=== PATIENT | female | born 1935 | race Hispanic/Latino ===

== ENCOUNTER 2019-01-29 09:15 | Emergency (ER) | payer MEDICARE ==
[~2019-01-29] VITALS: Ht 152.4 cm; Wt 66.2 kg
--- OUTSIDE RECORDS SUMMARY | 2019-01-29 09:18 | XMS REPORT | Continuity of Care Document ---
Author Author [facility] Organization [facility] Address Unknown Phone Unavailable Care Team Providers Care Software Engineering Manager Name Role Phone [facility] [employer] Unavailable Unavailable Problems Problem Status Onset Date Classification Date Reported Comments Source CERVICAL VIEWS Active 12/25/2018 [facility] K57.92 STAT Active 08/29/2018 [facility] Encounter for screening mammogram for malignant neoplasm of breast 03/22/2018 10/02/2018 [facility] Z12.31 - ENCNTR SCREEN MAMMOGRAM FOR MA Active 02/08/2018 [facility] M54.5 - LOW BACK PAIN Active 10/27/2017 [facility] Age-related osteoporosis without current pathological fracture 10/02/2018 [facility] Asymptomatic menopausal state 10/02/2018 [facility] Other specified disorders of bone density and structure, unspecified site 10/02/2018 [facility] Medications Medication Details Route Status Patient Instructions Ordering Provider Order Date Source Omnipaque 300 injectable solution 100 mL, Route: IVP, Drug Form: SOLN, kg, ONCALL, GFR > 45 mL/min, Start date: 08/29/18 13:00:00 OPEN WINDER, Duration: 1 doses or timesNotes: (Same as:Omnipaque 300). WASTE: F/P - Black; E - Municipal Trash Bin Active 08/29/2018 [facility] Allergies, Adverse Reactions, Alerts No Known Medication Allergies Immunizations No Data Provided for This Section Results Order Name Results Value Reference Range Date Interpretation Comments Source CHEM PANEL eGFR 86 08/29/2018 Result Comment: The eGFR is calculated using the CKD-EPI formula. In most young, healthy individuals the eGFR will be >90 mL/min/1.73m2. The eGFR declines with age. An eGFR of 60-89 may be normal in some populations, particularly the elderly, for whom the CKD-EPI formula has not been extensively validated. Use of the eGFR is not recommended in the following populations:

Individuals with unstable creatinine concentrations, including patients and those with serious co-morbid conditions.

Patients with extremes in muscle mass or diet.

The data above are obtained from the National Kidney Disease Education Program (NKDEP) which additionally recommends that when the eGFR is used in patients with extremes of body mass index for purposes of drug dosing, the eGFR should be multiplied by the estimated BMI. [facility] CHEM PANEL POC Creatinine 0.6 0.5 - 1.4 08/29/2018 [facility] Pathology Reports No Data Provided for This Section Diagnostic Reports Report Value Date Source Spine cervical 2 or 3 view DX Patient Name: REYNALDO COLEMAN : 1935; Age: 83 years y/o Female MR: [id number] Study: 3 view cervical spine 12/25/2018 10:11 AM CDT Ordering Physician: Mayela Che MD Clinical Indication: - neck pain; Comparison: None Discussion: 1.7 mm posterior subluxation of C3 on C4. 1.2 mm anterior subluxation of C6 on C7. Otherwise normal alignment through C7. The T1 vertebral body is obscured on the lateral view, but there are no obvious abnormalities at the C7-T1 disc space on the AP frontal view. Normal height of the disc spaces and vertebral bodies. Anterior marginal osteophytes are scattered in the spine. Normal C1-C2 articulation and odontoid. Left extracranial carotid artery calcifications. Prominent transverse process of the C7 vertebra. IMPRESSION: Minimal subluxations at the C3-C4 and C6-C7 levels. SL: HMUSPARE-PC 12/25/2018 [facility] Abdomen/Pelvis w IV contrast CT EXAM: CT ABDOMEN PELVIS WITH CONTRAST CLINICAL INDICATION: 83 years old Female with - K57.92 Diverticulitis of intestine, part unspecified, without perforation or abscess without bleeding. TECHNIQUE: GI CONTRAST: None. IV CONTRAST: 100 cc of Omnipaque-300 Axial post-contrast images were obtained from the lower chest to the symphysis pubis. Coronal and sagittal reconstruction images were performed. CT imaging performed at this location utilizes radiation dose optimization techniques which include one or more of the following: -Automated exposure control -Adjustment of the mA and/or kV according to patient size -Use of iterative reconstruction technique CT Radiation Dose DLP 463 mGy-cm COMPARISON: None. FINDINGS: LOWER CHEST: The visualized lung bases are clear. Fat-containing right Bochdalek hernia. Normal size of the heart is noted. SOLID ORGANS: 1.5 cm left hepatic cyst. Couple additional subcentimeter hypodensities noted which are too small to characterize. No intrahepatic biliary ductal dilatation is seen. Prior cholecystectomy. The spleen, pancreas, and adrenal glands are normal in appearance. Both kidneys demonstrate normal corticomedullary phase of enhancement. No renal/ureteral calculus, hydronephrosis, or mass is apparent. Subcentimeter bilateral renal cortical hypodensities noted which are too small to characterize, though statistically likely represent cysts. BOWEL: The small bowel and colon are normal in caliber without wall thickening. Predominantly left colonic diverticulosis without evidence of acute diverticulitis. PERITONEUM: No free intraperitoneal fluid or air. RETROPERITONEUM: Normal caliber of the abdominal aorta is noted. No lymphadenopathy is seen. PELVIS: The visualized urinary bladder wall is normal thickness. Uterus is absent. MUSCULOSKELETAL: No acute osseous abnormality is seen. No destructive lytic or blastic osseous lesion is noted. IMPRESSION: 1. Colonic diverticulosis without evidence of acute diverticulitis. 2. Left hepatic cyst. Couple additional subcentimeter hepatic hypodensities which are too small to characterize. 3. Subcentimeter bilateral renal hypodensities which are too small to characterize, though statistically likely represent cysts. SL: [id number] 08/29/2018 [facility] Bone Density DXA [employer] [place] BONE DENSITY ASSESSMENT: 03/15/2018 CLINICAL DATA: Post menopausal. M81.0 Age related osteoporosis. M81.0 Age- Related Osteoporosis Without Current Pathological Fracture/M81.0 Age-Related Osteoporosis Without Current Pathological Fracture RISK FACTORS: . FINDINGS: Bone density evaluation was performed 03/15/2018 on the right femur neck using a Hologic unit. The BMD average for the exam is 0.756 g/cm2. The T-score is -0.80 and the Z-score is 1.30. This matches the World Health Organization's criteria for normal bone density and places the patient within normal limits of fracture risk. An additional bone density evaluation was performed 03/15/2018 on the left femur neck using a Hologic unit. The BMD average for the exam is 0.753 g/cm2. The T- score is -0.90 and the Z-score is 1.30. This matches the World Health Organization's criteria for normal bone density and places the patient within normal limits of fracture risk. An additional bone density evaluation was performed 03/15/2018 on the right hip using a Hologic unit. The BMD average for the exam is 0.855 g/cm2. The T-score is -0.70 and the Z-score is 1.30. This matches the World Health Organization's criteria for normal bone density and places the patient within normal limits of fracture risk. An additional bone density evaluation was performed 03/15/2018 on the left hip using a Hologic unit. The BMD average for the exam is 0.885 g/cm2. The T-score is -0.50 and the Z-score is 1.50. This matches the World Health Organization's criteria for normal bone density and places the patient within normal limits of fracture risk. An additional bone density evaluation was performed 03/15/2018 on the AP L1-L4 region of spine using a Hologic unit. The BMD average for the exam is 0.896 g/cm2. The T-score is -1.40 and the Z-score is 1.30. This matches the World Health Organization's criteria for osteopenia and places the patient at a medium risk for fracture. FRAX 10 year probability of major osteoporotic fracture is 6.7% and hip fracture is 1.3%. IMPRESSION: OSTEOPENIA Patient is at medium risk for fracture. This exam was interpreted at [id number] for Caesar, MANUEL 15. Lisandro Deal M.D., cm/shin:03/15/2018 12:00:21 Extension Service Supervisor(s): Ladi Fitzgerald RT(R)(M), [facility] 03/15/2018 [facility] Breast Mammo Scrn LI incl CAD MA BILATERAL DIGITAL SCREENING MAMMOGRAM WITH CAD: 03/15/2018 CLINICAL: Z12.31 Encounter For Screening Mammogram For Malignant Neoplasm Of Breast/Z12.31 Encounter For Screening Mammogram For Malignant Neoplasm Of Breast. Current study was evaluated with a Computer Aided Detection (CAD) system. COMPARISON:Comparison is made to exam dated: 01/22/2008 mammogram - [facility]. TECHNIQUE: Mammographic views were obtained using digital acquisition. Current study was also evaluated with a Computer Aided Detection (CAD) system. FINDINGS: The tissue of both breasts is heterogeneously dense, which could obscure detection of small masses. There are benign calcifications in the left breast. No significant masses, calcifications, or other findings are seen in either breast. There has been no significant interval change. IMPRESSION: BENIGN RECOMMENDATION:There is no mammographic evidence of malignancy. A 1 year screening mammogram is recommended.(03/16/2019) This exam was interpreted at [id number] for MANUEL Luna 15. Professional services are provided by the [facility]. Lisandro Deal M.D., cm/penrad:03/15/2018 14:26:15 Extension Service Supervisor(s): RT Diana(R)(M), [facility] letter sent: BI-RADS 1/2 Dense Mammogram BI-RADS: 2 Benign 03/15/2018 [facility] Spine lumbar 2 or 3 views DX EXAM: Spine lumbar 2 or 3 views DX HISTORY: - M54.5 Low back pain COMPARISON: None AP and lateral views of the lumbar spine. FINDINGS: There appears to be a pars fracture on the left at L5. AP alignment appears normal. There is disc space narrowing and facet arthropathy at L5-S1. No vertebral body height loss is seen. IMPRESSION: Disc space narrowing and facet arthropathy at L5-S1 which is moderate to severe. There appears to be a left pars defect at L5. 10/27/2017 [facility] Hip 2/3 views uni w pelvis DX EXAM: Hip 2/3 views uni w pelvis DX HISTORY: - M25.552 Pain in left hip COMPARISON: None AP pelvis and AP and lateral views of the left hip. FINDINGS: There is no evidence of fracture or focal osseous lesion. No significant joint space narrowing, osteophyte formation or avascular necrosis. IMPRESSION: No significant abnormality. 10/27/2017 [facility] Consultation Notes No Data Provided for This Section Discharge Summaries No Data Provided for This Section History and Physicals No Data Provided for This Section Vital Signs No Data Provided for This Section Encounters Location Location Details Encounter Type Encounter Number Reason For Visit Attending Provider ADM Date DC Date Status Source [facility] [id number] José Miguel Roa 03/15/2018 03/16/2018 [facility] Outpatient [id number] Mayela Che 08/29/2018 08/30/2018 [facility] Outpatient [id number] Mayela Che 12/25/2018 12/26/2018 [facility] Procedures No Data Provided for This Section Assessment and Plan No Data Provided for This Section Plan of Care No Data Provided for This Section Social History Social History Date Source No data available for this section 12/26/2018 [facility] No data available for this section 03/16/2018 [facility] Family History No Data Provided for This Section Advance Directives No Data Provided for This Section Functional Status No Data Provided for This Section
--- OUTSIDE RECORDS SUMMARY | 2019-01-29 09:18 | XMS REPORT | Summary of Care ---
Author Author [facility] Organization [facility] Address Unknown Phone Unavailable Encounter HQ Gaurav(EVELIN) [id number] Date(s): 08/29/18 - 08/29/18 [facility] [address] [place] [address]- Discharge Disposition: Home or Self Care Attending Physician: Mayela Che MD Referring Physician: Mayela Che MD Vital Signs No data available for this section Problem List No data available for this section Allergies, Adverse Reactions, Alerts No data available for this section Medications Omnipaque 300 injectable solution 100 mL, Route: IVP, Drug Form: SOLN, kg, ONCALL, GFR > 45 mL/min, Start date: 08/29/18 13:00:00 DRUM PULLER, Duration: 1 doses or times Notes: (Same as:Omnipaque 300).WASTE: F/P - Black; E - Municipal Trash Bin Start Date: 08/29/18 Status: Ordered Results CHEM PANEL Most recent to 1 oldest [Reference Range]: eGFR 86 mL/min/1.73m2 1 *NA* (08/29/18 12:37 PM) POC Creatinine 0.6 mg/dL [0.5-1.4 mg/dL] (08/29/18 12:37 PM) 1Result Comment: The eGFR is calculated using the [...] from the National Kidney Disease Education Program ( NKDEP) which additionally recommends that when the eGFR is used in patients with extremes of body mass index for purposes of drug dosing, the eGFR should be mul tiplied by the estimated BMI. Immunizations No data available for this section Procedures No data available for this section Social History No data available for this section Assessment and Plan No data available for this section
--- OUTSIDE RECORDS SUMMARY | 2019-01-29 09:18 | XMS REPORT | Summary of Care ---
Author Author [facility] Organization [facility] Address Unknown Phone Unavailable Encounter HQ Encntr_alierendira(FIN) [id number] Date(s): 12/25/18 - 12/25/18 [facility] [address] [place] [address]- Discharge Disposition: Home or Self Care Attending Physician: Mayela Che MD Vital Signs No data available for this section Problem List No data available for this section Allergies, Adverse Reactions, Alerts No data available for this section Medications No data available for this section Results No data available for this section Immunizations No data available for this section Procedures No data available for this section Social History No data available for this section Assessment and Plan No data available for this section
--- OUTSIDE RECORDS SUMMARY | 2019-01-29 09:18 | XMS REPORT | Summary of Care ---
Author Author [facility] [place] Organization [facility] [place] Address Unknown Phone Unavailable Encounter HQ Rina_fredi(FIN) [id number] Date(s): 03/15/18 - 03/15/18 [facility] [place] [address] [phone] Encounter Diagnosis Encounter for screening mammogram for malignant neoplasm of breast (Final) - 03/21/18 Age-related osteoporosis without current pathological fracture (Final) - Asymptomatic menopausal state (Final) - Other specified disorders of bone density and structure, unspecified site (Final) - Discharge Disposition: Home or Self Care Attending Physician: José Miguel Roa MD Referring Physician: José Miguel Roa MD Vital Signs No data available for [...]
--- NOTE | 2019-01-29 09:40 | NUR ---
Electronic Device Repairer line [place] Valenzuela #[id number]
[2019-01-29] MEDS ORDERED: ONDANSETRON HCL 4 MG ORAL DISINTEGRATING TAB PO ONE (09:45)
[2019-01-29] MEDS ORDERED: SODIUM CHLORIDE 0.9% 1000ML 1,000 ML IV SCH (09:45)
[2019-01-29] MEDS ORDERED: MORPHINE SULFATE INJ 4 MG/ML INJ 1ML IV ONE (09:45)
[2019-01-29] MEDS ORDERED: SODIUM CHLORIDE 0.9% 1000ML 1,000 ML ONE (09:47)
[2019-01-29] MEDS ORDERED: ONDANSETRON HCL INJ 2MG/ML 2ML 2 MG/ML VIAL IV ONE (10:00)
[2019-01-29] MEDS ORDERED: MORPHINE SULFATE INJ 4 MG/ML INJ 1ML ONE (10:22)
--- NOTE | 2019-01-29 10:26 | Diagnostic Imaging Report ---
Examination: CT head without contrast Clinical Indication: Dizziness for 3 days. Technique: Transaxial noncontrast images from the skull base through the vertex were obtained. Sagittal and coronal reformatted images were done. Dose modulation, iterative reconstruction, and/or weight based adjustment of the mA/kV was utilized to reduce the radiation dose to as low as reasonably achievable. Comparison: None. Findings: Scalp: No abnormalities. Bones: Intact. No fractures. No blastic or lytic lesions. Brain sulci: Appropriate for patient's age. Ventricles: Normal in size and configuration. No hydrocephalus. Extra-axial space: No abnormalities. Parenchyma: No abnormal densities. No masses, hemorrhage, or acute or chronic cortical based vascular insults. Suprasellar region: No abnormalities. Craniocervical junction: The foramen magnum is patent. No Chiari one malformation. Incidental findings: Atherosclerotic calcification of the cavernous and supraclinoid internal carotid arteries. Impression: No acute intracranial abnormality. Signed by: Dr. Kamilla Fernando M.D. on 01/29/2019 10:23 AM
--- NOTE | 2019-01-29 10:38 | Diagnostic Imaging Report ---
EXAM: CT Abdomen and Pelvis WITHOUT intravenous contrast INDICATION: Nausea, vomiting, diarrhea COMPARISON: None. TECHNIQUE: Abdomen and pelvis were scanned utilizing a multidetector helical scanner from the lung base to the pubic symphysis without administration of IV contrast. Coronal and sagittal reformations were obtained. IV CONTRAST: None ORAL CONTRAST: None COMPLICATIONS: None RADIATION DOSE: Total DLP: 778.4 mGy*cm Dose modulation, iterative reconstruction, and/or weight based adjustment of the mA/kV was utilized to reduce the radiation dose to as low as reasonably achievable. FINDINGS: LOWER THORAX: Normal. HEPATOBILIARY: 1.2 cm cyst in the left hepatic lobe. No other focal liver lesions. Status post cholecystectomy. SPLEEN: No splenomegaly. PANCREAS: No focal masses or ductal dilatation. ADRENALS: No adrenal nodules. KIDNEYS/URETERS: Mild right hydronephrosis. No associated calculus. Subcentimeter cysts in the left kidney. No left hydronephrosis or calculi. PELVIC ORGANS/BLADDER: Status post hysterectomy. Phleboliths in the pelvis. PERITONEUM / RETROPERITONEUM: No free air or fluid. LYMPH NODES: No lymphadenopathy. VESSELS: Atherosclerotic calcifications of the nonaneurysmal abdominal aorta and major branches. GI TRACT: Extensive sigmoid and descending colonic diverticulosis with no CT evidence of diverticulitis. Several diverticuli also involve the ascending colon. BONES AND SOFT TISSUES: No acute osseous injury. No suspicious lytic or blastic lesions. IMPRESSION: Mild right hydronephrosis without associated renal or ureteral calculus. Sigmoid and descending colonic diverticulosis without specific CT evidence of diverticulitis. Several diverticuli also involve the ascending colon. Signed by: Yg Minor MD on 01/29/2019 10:35 AM
[2019-01-29 11:01] VITALS: BP 162/75
--- NOTE | 2019-01-29 11:20 | NUR ---
Discharge Cultural link technical sales manager Ami Kauffman #[id number]
== END 2019-01-29 11:20 | disposition home or self-care (01) ==
LOC: FSED 09:15
DX: R10.13 Epigastric pain (principal); R11.0 Nausea; R19.7 Diarrhea, unspecified; K59.00 Constipation, unspecified
CPT/HCPCS: 70450; 74176; 80053; 80076; 81003; 85025; 93005; 96374; 99284; J2270; J2405; J7030; Q0162

== ENCOUNTER 2019-04-02 09:11 | Emergency (ER) | payer MEDICARE ==
[~2019-04-02] VITALS: Ht 160 cm; Wt 66.2 kg
--- OUTSIDE RECORDS SUMMARY | 2019-04-02 09:14 | XMS REPORT ---
Author Author [facility] Address Unknown Phone Unavailable Care Team Providers Care Professional Skater Name Role Phone CISCO TOLEDO Unavailable Unavailable Problems This patient has no known problems. Allergies, Adverse Reactions, Alerts This patient has no known allergies or adverse reactions. Medications This patient has no known medications. Encounters Start Date/Time End Date/Time Encounter Type Admission Type Attending Clinicians Care Facility Care Department Encounter ID 2018-12-25 10:05:00 2018-12-25 10:05:00 [id number] Results Test Description Test Time Test Comments Text Results Atomic Results Result Comments CT ABD/PEL WO CONTRAST-HOPD 2019-01-29 10:25:00 [place] [address] Patient Name: REYNALDO COLEMAN MR #: [id number] : 1935 Age/Sex: 83/F Req #: [id number] Adm Physician: Ordered by: CISCO TOLEDO MD Report #: [id number] Location: [facility] Room/Bed: Procedure: [id number] HOPD/CT ABD/PEL WO CONTRAST-HOPD Exam Date: 01/29/19 Exam Time: 1000 REPORT STATUS: Signed EXAM: CT Abdomen and Pelvis WITHOUT intravenous contrast INDICATION: Nausea, vomiting, diarrhea COMPARISON: None. TECHNIQUE: Abdomen and pelvis were scanned utilizing a multidetector helical scanner from the lung base to the pubic symphysis without administration of IV contrast. Coronal and sagittal reformations were obtained. IV CONTRAST: None ORAL CONTRAST: None COMPLICATIONS: None RADIATION DOSE: Total DLP: 778.4 mGy*cm Dose modulation, iterative reconstruction, and/or weight based adjustment of the mA/kV was utilized to reduce the radiation dose to as low as reasonably achievable. FINDINGS: LOWER THORAX: Normal. HEPATOBILIARY: 1.2 cm cyst in the left hepatic lobe. No other focal liver lesions. Status post cholecystectomy. SPLEEN: No splenomegaly. PANCREAS: No focal masses or ductal dilatation. ADRENALS: No adrenal nodules. KIDNEYS/URETERS: Mild right hydronephrosis. No associated calculus. Subcentimeter cysts in the left kidney. No left hydronephrosis or calculi. PELVIC ORGANS/BLADDER: Status post hysterectomy. Phleboliths in the pelvis. PERITONEUM / RETROPERITONEUM: No free air or fluid. LYMPH NODES: No lymphadenopathy. VESSELS: Atherosclerotic calcifications of the nonaneurysmal abdominal aorta and major branches. GI TRACT: Extensive sigmoid and descending colonic diverticulosis with no CT evidence of diverticulitis. Several diverticuli also involve the ascending colon. BONES AND SOFT TISSUES: No acute osseous injury. No suspicious lytic or blastic lesions. IMPRESSION: Mild right hydronephrosis without associated renal or ureteral calculus. Sigmoid and descending colonic diverticulosis without specific CT evidence of diverticulitis. Several diverticuli also involve the ascending colon. Signed by: Su Stubbs MD on 01/29/2019 10:35 AM Dictated By: SU STUBBS MD 1035 Transcribed By: KORI on 01/29/19 1035 COPY TO: CISCO TOLEDO MD CT BRAIN -[facility] 2019-01-29 10:22:00 [place] [address] Patient Name: REYNALDO COLEMAN MR #: [id number] : 1935 Age/Sex: 83/F Req #: [id number] Adm Physician: Ordered by: CISCO TOLEDO MD Report #: [id number] Location: [facility] Room/Bed: Procedure: [id number] HOPD/CT BRAIN WO-HOPD Exam Date: 01/29/19 Exam Time: 1000 REPORT STATUS: Signed Examination: CT head without contrast Clinical Indication: Dizziness for 3 days. Technique: Transaxial noncontrast images from the skull base through the vertex were obtained. Sagittal and coronal reformatted images were done. Dose modulation, iterative reconstruction, and/or weight based adjustment of the mA/kV was utilized to reduce the radiation dose to as low as reasonably achievable. Comparison: None. Findings: Scalp: No abnormalities. Bones: Intact. No fractures. No blastic or lytic lesions. Brain sulci: Appropriate for patient's age. Ventricles: Normal in size and configuration. No hydrocephalus. Extra-axial space: No abnormalities. Parenchyma: No abnormal densities. No masses, hemorrhage, or acute or chronic cortical based vascular insults. Suprasellar region: No abnormalities. Craniocervical junction: The foramen magnum is patent. No Chiari one malformation. Incidental findings: Atherosclerotic calcification of the cavernous and supraclinoid internal carotid arteries. Impression: No acute intracranial abnormality. Signed by: Dr. Kamilla Fernando M.D. on 01/29/2019 10:23 AM Dictated By: KAMILLA HESS MD 1023 Transcribed By: KORI on 01/29/19 1023 COPY TO: CISCO TOLEDO MD
--- OUTSIDE RECORDS SUMMARY | 2019-04-02 09:14 | XMS REPORT | Continuity of Care Document ---
Author Author [employer] Organization [facility] Address Unknown Phone Unavailable Care Team Providers Care Lpn Rn Name Role Phone [facility] Unavailable Unavailable Problems Problem Status Onset Date Classification Date Reported Comments Source CERVICAL VIEWS Active 12/25/2018 [facility] K57.92 STAT Active 08/29/2018 [facility] Encounter for screening mammogram for malignant neoplasm of breast 03/22/2018 10/02/2018 [facility] [place] Z12.31 - ENCNTR SCREEN MAMMOGRAM FOR MA Active 02/08/2018 [facility] [place] M54.5 - LOW BACK PAIN Active 10/27/2017 [facility] [place] Age-related osteoporosis without current pathological fracture 10/02/2018 [facility] [place] Asymptomatic menopausal state 10/02/2018 [facility] [place] Other specified disorders of bone density and structure, unspecified site 10/02/2018 [facility] [place] Medications Medication Details Route Status Patient Instructions Ordering Provider Order Date Source Omnipaque 300 injectable solution 100 mL, Route: IVP, Drug Form: SOLN, kg, ONCALL, GFR > 45 mL/min, Start date: 08/29/18 13:00:00 [employer], Duration: 1 doses or timesNotes: (Same as:Omnipaque 300). WASTE: F/P - Black; E - Municipal Trash Bin Active 08/29/2018 [facility] Allergies, Adverse Reactions, Alerts No Known [...] should be multiplied by the estimated BMI. [facility] CHEM PANEL POC Creatinine 0.6 0.5 - 1.4 08/29/2018 [facility] Pathology Reports No Data Provided for This Section Diagnostic Reports Report Value Date Source Spine cervical 2 or 3 view DX Patient Name: REYNALDO COLEMAN : 1935; Age: 83 years y/o Female MR: [id number] Study: 3 view cervical spine 12/25/2018 10:11 [...] C3-C4 and C6-C7 levels. SL: HMUSPARE-PC 12/25/2018 [facility] Abdomen/Pelvis w IV contrast CT EXAM: [...] characterize, though statistically likely represent cysts. SL: [id number] 08/29/2018 [facility] Bone Density DXA [employer] MA [...] for fracture. This exam was interpreted at [id number] for Caesar, MANUEL 15. Lisandro Deal M.D., cm/shin:03/15/2018 12:00:21 [employer](s): Ladi Fitzgerald RT(R)(M), [facility] 03/15/2018 [facility] [place] Breast Mammo Scrn LI incl CAD MA BILATERAL DIGITAL SCREENING MAMMOGRAM WITH CAD: 03/15/2018 CLINICAL: Z12.31 Encounter For Screening Mammogram For Malignant Neoplasm Of Breast/Z12.31 Encounter For Screening Mammogram For Malignant Neoplasm Of Breast. Current study was evaluated with a Computer Aided Detection (CAD) system. COMPARISON:Comparison is made to exam dated: 01/22/2008 mammogram - [facility]. TECHNIQUE: Mammographic views were obtained using digital [...] is recommended.(03/16/2019) This exam was interpreted at [id number] for MANUEL Luna 15. Professional services are provided by the [facility]. Lisandro Deal M.D., cm/penrad:03/15/2018 14:26:15 [employer](s): RT Diana(R)(M), [facility] letter sent: BI-RADS 1/2 Dense Mammogram BI-RADS: [...] Provider ADM Date DC Date Status Source [facility] [id number] José Miguel Roa 03/15/2018 03/16/2018 [facility] Out[facility] [id number] Mayela Che 08/29/2018 08/30/2018 [facility] Outpatient [id number] Mayela Che 12/25/2018 12/26/2018 [facility] Procedures No Data Provided for This Section Assessment and Plan No Data Provided for This Section Plan of Care No Data Provided for This Section Social History Social History Date Source No data available for this section 12/26/2018 [facility] No data available for this section 03/16/2018 [facility] Family History No Data Provided for This Section Advance Directives No Data Provided for This Section Functional Status No Data Provided for This Section
[2019-04-02] MEDS ORDERED: CEFTRIAXONE SOD 1 GM VIAL ONE (09:44)
[2019-04-02] MEDS ORDERED: KETOROLAC TROMETHAMINE 30 MG/ML VIAL ONE (09:44)
[2019-04-02] MEDS ORDERED: CEFTRIAXONE SOD 500 MG VIAL IM ONE (09:45)
[2019-04-02] MEDS ORDERED: ACETAMINOPHEN 325 MG TAB ONE (09:45)
[2019-04-02] MEDS ORDERED: KETOROLAC TROMETHAMINE 30 MG/ML VIAL IM ONE (09:45)
[2019-04-02] MEDS ORDERED: ACETAMINOPHEN 325 MG TAB PO ONE (09:45)
== END 2019-04-02 09:54 | disposition home or self-care (01) ==
LOC: FSED 09:11
DX: R30.0 Dysuria (principal); R10.2 Pelvic and perineal pain; N30.01 Acute cystitis with hematuria; I10 Essential (primary) hypertension
CPT/HCPCS: 81003; 99283; J0696; J1885

== ENCOUNTER 2019-04-30 18:03 | Emergency (ER) | payer MEDICARE ==
[~2019-04-30] VITALS: Ht 160 cm; Wt 66.2 kg
[2019-04-30] MEDS ORDERED: KETOROLAC TROMETHAMINE 30 MG/ML VIAL IV ONE (18:50)
[2019-04-30] MEDS ORDERED: SODIUM CHLORIDE 0.9% 1000ML 1,000 ML IV ONE (19:00)
[2019-04-30] MEDS ORDERED: IOPAMIDOL 370 MG/ML 200 ML INFUS..BTL INJ ONE (19:17)
[2019-04-30] MEDS ORDERED: SODIUM CHLORIDE 0.9% 50ML 50 ML ONE (19:17)
--- NOTE | 2019-04-30 20:30 | Diagnostic Imaging Report ---
EXAM: CT of the abdomen and pelvis WITH contrast HISTORY: Abdominal pain, history of diverticulosis, history of appendectomy, cholecystectomy, hysterectomy, left lower quadrant pain COMPARISON: CT of the abdomen and pelvis January 29, 2019. TECHNIQUE: The abdomen and pelvis were scanned utilizing a multidetector helical scanner. Coronal and sagittal reformats are provided. PROTOCOL: Routine IV CONTRAST: 100 cc of Isovue-370. ORAL CONTRAST: None, which limits sensitivity and specificity of the exam. RADIATION DOSE: Total DLP: 562.79 mGy*cm Estimated effective dose: (DLP x 0.015 x size factor) Dose modulation, iterative reconstruction, and/or weight based adjustment of the mA/kV was utilized to reduce the radiation dose to as low as reasonably achievable. COMPLICATIONS: None FINDINGS: LOWER THORAX: Right posterior diaphragmatic fat-containing hernia. HEPATOBILIARY: Stable appearing 1.7 and 0.9 cm fluid density is within the left lobe of the liver, compatible with cyst. No biliary dilation. Metallic clips in the right upper quadrant of the abdomen are compatible with prior cholecystectomy. SPLEEN: No splenomegaly. PANCREAS: No focal masses or ductal dilatation. ADRENALS: No discrete adrenal nodule. KIDNEYS/URETERS: No hydronephrosis, stones, or definite solid mass lesions. Subcentimeter hypodensities within both kidneys, statistically most likely small cyst. PELVIC ORGANS/BLADDER: The visualized pelvic organs appear unremarkable. GI TRACT: Prominent colonic diverticulosis, most notably the descending and sigmoid colon. The stomach and ascending colon is decompressed, which partially limits evaluation. PERITONEUM / RETROPERITONEUM: No free air or fluid. LYMPH NODES: No pathologically enlarged lymph node. VESSELS: Diffuse scattered atherosclerotic vascular calcifications. BONES and JOINTS: No aggressive osseous lesion or acute fracture. SOFT TISSUES: Unremarkable. IMPRESSION: Colonic diverticulosis, without specific CT evidence of acute diverticulitis. Signed by: Dr. Giancarlo Voss D.O., M.M.M. on 04/30/2019 8:26 PM
--- NOTE | 2019-04-30 20:56 | NUR ---
Urine culture collected.
== END 2019-04-30 21:05 | disposition home or self-care (01) ==
LOC: FSED 18:03
DX: R10.12 Left upper quadrant pain (principal); R10.32 Left lower quadrant pain; I10 Essential (primary) hypertension
CPT/HCPCS: 74177; 87086; 87186; 99284; Q9967

== ENCOUNTER 2020-10-09 19:39 | Emergency (ER) | payer OTHER, MEDICARE ==
[~2020-10-09] VITALS: Ht 160 cm; Wt 66.2 kg
[2020-10-09] MEDS ORDERED: MORPHINE SULFATE INJ 2 MG/ML SYR IV STA (19:56)
[2020-10-09] MEDS ORDERED: ONDANSETRON HCL INJ 2MG/ML 2ML 2 MG/ML VIAL IV STA (19:56)
[2020-10-09] MEDS ORDERED: ONDANSETRON HCL INJ 2MG/ML 2ML 2 MG/ML VIAL ONE (20:58)
[2020-10-09] MEDS ORDERED: CEFTRIAXONE SOD 1 GM/50 ML BAG IV ONE (21:15)
[2020-10-09] MEDS ORDERED: CEFTRIAXONE SOD 1 GM in SODIUM CHLORIDE 0.9% 50ML 50 ML IV ONE (21:30)
== END 2020-10-09 20:40 | disposition home or self-care (01) ==
LOC: FSED 19:56
DX: R10.30 Lower abdominal pain, unspecified (principal); R30.0 Dysuria; N30.00 Acute cystitis without hematuria; I10 Essential (primary) hypertension
CPT/HCPCS: 74176; 80048; 80076; 81003; 85025; 99284; J0696; J2405

== ENCOUNTER 2021-02-19 14:41 | Emergency (ER) | payer OTHER, MEDICARE ==
[~2021-02-19] VITALS: Ht 160 cm; Wt 64.2 kg
[2021-02-19] MEDS ORDERED: LISINOPRIL10 MG PO (14:58)
[2021-02-19] MEDS ORDERED: ALENDRONATE SOD70 MG (14:58)
[2021-02-19] MEDS ORDERED: HYDROCODONE/APAP 5MG-325MG TAB PO ONE (16:15)
[2021-02-19] MEDS ORDERED: HYDROCODONE/APAP 5MG-325MG TAB ONE (16:30)
[2021-02-19] MEDS ORDERED: FIORICET 50-301 EACH PO (16:53)
== END 2021-02-19 17:07 | disposition home or self-care (01) ==
LOC: FSED 15:10
DX: R51.9 Headache, unspecified (principal); I10 Essential (primary) hypertension
CPT/HCPCS: 70450; 80053; 85025; 99284

== ENCOUNTER 2022-07-21 10:55 | Emergency (ER) | payer MEDICARE ==
[~2022-07-21] VITALS: Ht 160 cm; Wt 64.0 kg
[~2022-07-21 10:55] MED LIST: ALENDRONATE SOD70 MG; CEPHALEXIN500 MG PO; FIORICET 50-301 EACH PO; GABAPENTIN100 MG PO; LISINOPRIL10 MG PO
[2022-07-21 12:33] LABS: BASOPHILS % 1.3 % (0.0-1.0); HEMATOCRIT 33.5 % (34.2-44.1); HEMOGLOBIN 9.9 g/dL (12.0-16.0); LYMPHOCYTES % 61.6 % (18.0-39.1); MEAN CORPUSCULAR HEMOGLOBIN 27.7 pg (28-32); MEAN CORPUSCULAR HGB CONC 29.6 g/dL (31-35); MEAN CORPUSCULAR VOLUME 93.8 fL (81-99); MONOCYTES # (AUTO) 0.5 (0.2-0.8); MONOCYTES % 14.7 % (4.4-11.3); NEUTROPHILS # (AUTO) 0.7 (2.1-6.9); NEUTROPHILS % 20.5 % (38.7-80.0); RED BLOOD COUNT 3.57 x10e6/uL (3.6-5.1); RED CELL DISTRIBUTION WIDTH 15.9 % (11.7-14.4)
[2022-07-21 12:39] LABS: PLATELET COUNT 38 x10e3/uL (140-360)
[2022-07-21 12:47] LABS: INR 1.14; PROTHROMBIN TIME 14.8 seconds (11.9-14.5)
[2022-07-21 12:56] LABS: ALBUMIN 2.6 g/dL (3.5-5.0); ALBUMIN/GLOBULIN RATIO 0.6 (0.8-2.0); ANION GAP 17.9 mmol/L (8-16); CALCIUM 9.3 mg/dL (8.4-10.2); CREATININE, SERUM 0.69 mg/dL (0.57-1.11); POTASSIUM 3.9 mmol/L (3.5-5.1)
[2022-07-21 13:04] LABS: CREATINE KINASE MB 0.5 ng/mL (0-5.0)
[2022-07-21 15:02] LABS: CLARITY,URINE CLEAR (CLEAR); COLOR,URINE YELLOW (YELLOW); KETONES,URINE NEGATIVE (NEGATIVE); LEUKOCYTE ESTERASE ,URINE TRACE (NEGATIVE); NITRITE,URINE NEGATIVE (NEGATIVE); PROTEIN,URINE DIPSTICK NEGATIVE (NEGATIVE); URINE UROBILINOGEN 0.2 mg/dL (0.2 - 1)
[2022-07-21 15:14] LABS: AMORPHOUS SEDIMENT,URINE MODERATE (FEW); BACTERIA,URINE FEW /HPF; WBC,URINE (MAN) 0-5 /HPF (0-5)
[2022-07-21] MEDS ORDERED: KEFLEX125 MG/5 M PO ×2 (15:28→15:30)
[2022-07-21] MEDS ORDERED: LEVOFLOXACIN250 MG PO (15:33)
== END 2022-07-21 15:24 | disposition home or self-care (01) ==
LOC: ER 11:16
DX: M79.89 Other specified soft tissue disorders (principal); R60.9 Edema, unspecified; D69.6 Thrombocytopenia, unspecified; N39.0 Urinary tract infection, site not specified; I10 Essential (primary) hypertension; M54.9 Dorsalgia, unspecified; G89.29 Other chronic pain
CPT/HCPCS: 36415; 71046; 80053; 81001; 82550; 82553; 83880; 84484; 85025; 85610; 85730; 93925; 93970; 99283

== ENCOUNTER 2022-07-31 03:32 | Inpatient (IN) | payer MEDICARE ==
[~2022-07-31] VITALS: Ht 160 cm; Wt 64.0 kg
[2022-07-31] VITALS (7 sets, daily range): BP systolic 126–142; BP diastolic 43–52
[~2022-07-31 03:32] MED LIST changes: +KEFLEX125 MG/5 M PO; +LEVOFLOXACIN250 MG PO
[2022-07-31 04:11] LABS: BASOPHILS # (AUTO) 0.1 (0.0-0.1); BASOPHILS % 0.8 % (0.0-1.0); EOSINOPHILS % 0.1 % (0.0-6.0); HEMATOCRIT 32.2 % (34.2-44.1); HEMOGLOBIN 9.7 g/dL (12.0-16.0); LYMPHOCYTES # (AUTO) 5.5 (1.0-3.2); LYMPHOCYTES % 66.1 % (18.0-39.1); MEAN CORPUSCULAR HEMOGLOBIN 27.7 pg (28-32); MEAN CORPUSCULAR HGB CONC 30.1 g/dL (31-35); MONOCYTES # (AUTO) 1.9 (0.2-0.8); MONOCYTES % 22.5 % (4.4-11.3); NEUTROPHILS # (AUTO) 0.8 (2.1-6.9); NEUTROPHILS % 9.7 % (38.7-80.0); RED CELL DISTRIBUTION WIDTH 15.9 % (11.7-14.4)
[2022-07-31 04:12] LABS: CLARITY,URINE SL CLOUDY (CLEAR); COLOR,URINE YELLOW (YELLOW); KETONES,URINE NEGATIVE (NEGATIVE); LEUKOCYTE ESTERASE ,URINE SMALL (NEGATIVE); NITRITE,URINE NEGATIVE (NEGATIVE); PROTEIN,URINE DIPSTICK NEGATIVE (NEGATIVE); URINE UROBILINOGEN 0.2 mg/dL (0.2 - 1)
[2022-07-31 04:16] LABS: PLATELET COUNT 21 x10e3/uL (140-360)
[2022-07-31 04:18] LABS: BACTERIA,URINE FEW /HPF; EPITHELIAL CELLS,URINE MANY /LPF; RBC,URINE 0-5 /HPF (0-5)
[2022-07-31 04:33] LABS: ALBUMIN/GLOBULIN RATIO 0.7 (0.8-2.0); ANION GAP 16.9 mmol/L (8-16); CALCIUM 9.2 mg/dL (8.4-10.2); CREATININE, SERUM 0.8 mg/dL (0.57-1.11); POTASSIUM 3.9 mmol/L (3.5-5.1)
[2022-07-31 04:39] LABS: CREATINE KINASE MB 0.7 ng/mL (0-5.0)
[2022-07-31] MEDS ORDERED: IOPAMIDOL 370 MG/ML 100 ML INFUS..BTL INJ ONE (05:27)
[2022-07-31] MEDS ORDERED: SODIUM CHLORIDE FLUSH 10 ML SYR INJ PRN (06:15)
[2022-07-31] MEDS ORDERED: METRONIDAZOLE 500MG/NS 100ML 100 ML IV ONE (06:15)
[2022-07-31] MEDS ORDERED: CIPROFLOXACIN 400 MG/D5W 200ML 200 ML IV ONE (06:15)
[2022-07-31] MEDS ORDERED: HYDROCODONE/APAP 7.5MG-325MG 1 EA TAB PO PRN (10:00)
[2022-07-31] MEDS ORDERED: ONDANSETRON HCL INJ 2MG/ML 2ML 2 MG/ML VIAL IV PRN (10:00)
[2022-07-31] MEDS ORDERED: CEPHALEXIN250 MG PO (10:03)
[2022-07-31] MEDS ORDERED: LISINOPRIL10 MG PO (10:03)
[2022-07-31] MEDS ORDERED: IBUPROFEN800 MG PO (10:03)
[2022-07-31] MEDS ORDERED: CELEBREX200 MG PO (10:03)
[2022-07-31] MEDS ORDERED: FLONASE ALLERG9.9 ML INH (10:03)
[2022-07-31] MEDS ORDERED: NEURONTIN300 MG PO (10:03)
[2022-07-31] MEDS ORDERED: LASIX20 MG PO (10:03)
[2022-07-31] MEDS ORDERED: LEVOFLOXACIN250 MG PO (10:03)
[2022-07-31] MEDS ORDERED: CETIRIZINE HCL10 MG PO (10:03)
[2022-07-31] MEDS ORDERED: PERCOCET 5-3251 EACH PO (10:03)
[2022-07-31] MEDS ORDERED: VENTOLIN HFA18 GM INH (10:06)
[2022-07-31] MEDS ORDERED: CIPRO500 MG PO (10:07)
[2022-07-31] MEDS: SODIUM CHLORIDE 0.9% 1000ML 1,000 ML IV SCH ×2 (11:06→21:00)
[2022-07-31 11:30] LABS: THYROID STIMULATING HORMONE 2.169 uIU/mL (0.350-4.940)
[2022-07-31 12:48] LABS: BLAST CELLS % MANUAL 27; EOSINOPHILS % (MANUAL) 1 % (0-7); LYMPHOCYTES % (MANUAL) 39 % (19-48); MONOCYTES % (MANUAL) 20 % (3.4-9.0); NEUTROPHILS % (MANUAL) 8 % (40-74); NUCLEATED RED BLOOD CELLS 0
[2022-07-31 13:01] LABS: PLATELET ESTIMATE MARKEDLY DECREASED
[2022-07-31 13:02] LABS: PLATELET MORPHOLOGY COMMENT NORMAL; RBC MORPHOLOGY COMMENT NORMAL
[2022-07-31] MEDS: ACETAMINOPHEN 325 MG TAB PO PRN (22:28)
[2022-08-01] VITALS (7 sets, daily range): BP systolic 130–153; BP diastolic 41–58
[2022-08-01] MEDS: SODIUM CHLORIDE 0.9% 1000ML 1,000 ML IV SCH ×2 (05:44→17:48)
[2022-08-01 06:27] LABS: BASOPHILS # (AUTO) 0.1 (0.0-0.1); BASOPHILS % 1.1 % (0.0-1.0); EOSINOPHILS % 0.1 % (0.0-6.0); HEMATOCRIT 27.2 % (34.2-44.1); HEMOGLOBIN 8.4 g/dL (12.0-16.0); LYMPHOCYTES % 59.5 % (18.0-39.1); MEAN CORPUSCULAR HEMOGLOBIN 27.2 pg (28-32); MEAN CORPUSCULAR HGB CONC 30.9 g/dL (31-35); MONOCYTES # (AUTO) 2.5 (0.2-0.8); MONOCYTES % 30.1 % (4.4-11.3); NEUTROPHILS # (AUTO) 0.7 (2.1-6.9); NEUTROPHILS % 8.6 % (38.7-80.0); RED BLOOD COUNT 3.09 x10e6/uL (3.6-5.1); RED CELL DISTRIBUTION WIDTH 16.5 % (11.7-14.4)
[2022-08-01 06:50] LABS: ALBUMIN 2.5 g/dL (3.5-5.0); ALBUMIN/GLOBULIN RATIO 0.7 (0.8-2.0); ANION GAP 12.8 mmol/L (8-16); CALCIUM 8.6 mg/dL (8.4-10.2); CREATININE, SERUM 0.75 mg/dL (0.57-1.11); MAGNESIUM 1.9 MG/DL (1.3-2.1); PHOSPHORUS 3.8 MG/DL (2.3-4.7); POTASSIUM 3.8 mmol/L (3.5-5.1)
[2022-08-01 07:34] LABS: PLATELET COUNT 13 x10e3/uL (140-360)
[2022-08-01] MEDS: LACTOBACILLUS ACIDOPHILUS CAPSULE PO SCH ×3 (09:16→20:30)
[2022-08-01] MEDS: DICYCLOMINE HCL 10 MG CAP PO SCH ×3 (09:16→20:31)
[2022-08-01 11:22] LABS: PLATELET ESTIMATE MARKEDLY DECREASED
[2022-08-01 11:23] LABS: PLATELET MORPHOLOGY COMMENT NORMAL
[2022-08-01] MEDS: ACETAMINOPHEN 325 MG TAB PO PRN (12:35)
[2022-08-01] MEDS ORDERED: SODIUM CHLORIDE 0.9% 250ML 250 ML ONE (16:00)
[2022-08-02] VITALS (7 sets, daily range): BP systolic 145–154; BP diastolic 44–61
[2022-08-02 05:43] LABS: BASOPHILS # (AUTO) 0.1 (0.0-0.1); BASOPHILS % 1.4 % (0.0-1.0); EOSINOPHILS % 0.2 % (0.0-6.0); HEMATOCRIT 26.4 % (34.2-44.1); HEMOGLOBIN 8.4 g/dL (12.0-16.0); LYMPHOCYTES # (AUTO) 3.6 (1.0-3.2); LYMPHOCYTES % 58.1 % (18.0-39.1); MEAN CORPUSCULAR HEMOGLOBIN 27.8 pg (28-32); MEAN CORPUSCULAR HGB CONC 31.8 g/dL (31-35); MEAN CORPUSCULAR VOLUME 87.4 fL (81-99); MONOCYTES # (AUTO) 1.8 (0.2-0.8); MONOCYTES % 29.1 % (4.4-11.3); NEUTROPHILS # (AUTO) 0.7 (2.1-6.9); NEUTROPHILS % 10.6 % (38.7-80.0); RED BLOOD COUNT 3.02 x10e6/uL (3.6-5.1)
[2022-08-02 05:59] LABS: PLATELET COUNT 34 x10e3/uL (140-360)
[2022-08-02 07:56] LABS: BLAST CELLS % MANUAL 21; LYMPHOCYTES % (MANUAL) 57 % (19-48); MONOCYTES % (MANUAL) 1 % (3.4-9.0); NEUTROPHILS % (MANUAL) 15 % (40-74); PLATELET ESTIMATE MARKEDLY DECREASED; PLATELET MORPHOLOGY COMMENT NORMAL; RBC MORPHOLOGY COMMENT NORMAL
[2022-08-02 07:58] LABS: OVALOCYTES FEW
[2022-08-02 07:59] LABS: ANISOCYTOSIS SLIGHT
[2022-08-02] MEDS: DICYCLOMINE HCL 10 MG CAP PO SCH ×3 (09:53→21:18)
[2022-08-02] MEDS: LACTOBACILLUS ACIDOPHILUS CAPSULE PO SCH ×3 (09:53→21:18)
[2022-08-02] MEDS: SODIUM CHLORIDE 0.9% 1000ML 1,000 ML IV SCH ×2 (09:54→21:20)
[2022-08-02] MEDS: ACETAMINOPHEN 325 MG TAB PO PRN (21:19)
[2022-08-03 06:21] LABS: EOSINOPHILS % 0.1 % (0.0-6.0); HEMATOCRIT 29.8 % (34.2-44.1); LYMPHOCYTES # (AUTO) 4.4 (1.0-3.2); LYMPHOCYTES % 62.8 % (18.0-39.1); MEAN CORPUSCULAR HEMOGLOBIN 28.1 pg (28-32); MEAN CORPUSCULAR HGB CONC 30.2 g/dL (31-35); MONOCYTES # (AUTO) 1.6 (0.2-0.8); MONOCYTES % 22.7 % (4.4-11.3); NEUTROPHILS # (AUTO) 0.9 (2.1-6.9); NEUTROPHILS % 13.5 % (38.7-80.0); RED CELL DISTRIBUTION WIDTH 15.8 % (11.7-14.4)
[2022-08-03 06:34] LABS: MEAN CORPUSCULAR VOLUME 93.1 fL (81-99); PLATELET COUNT 21 x10e3/uL (140-360)
[2022-08-03 06:47] LABS: ANION GAP 13.8 mmol/L (8-16); CALCIUM 8.8 mg/dL (8.4-10.2); CREATININE, SERUM 0.67 mg/dL (0.57-1.11); POTASSIUM 3.8 mmol/L (3.5-5.1)
[2022-08-03 08:41] LABS: BLAST CELLS % MANUAL 37; EOSINOPHILS % (MANUAL) 1 % (0-7); LYMPHOCYTES % (MANUAL) 41 % (19-48); METAMYELOCYTES % (MANUAL) 6 % (0-0); NEUTROPHILS % (MANUAL) 14 % (40-74); PLATELET ESTIMATE MARKEDLY DECREASED
[2022-08-03 08:42] LABS: OVALOCYTES FEW; PLATELET MORPHOLOGY COMMENT NORMAL; RBC MORPHOLOGY COMMENT NORMAL
[2022-08-03] MEDS: LACTOBACILLUS ACIDOPHILUS CAPSULE PO SCH (09:06)
[2022-08-03] MEDS: DICYCLOMINE HCL 10 MG CAP PO SCH (09:06)
[2022-08-03] MEDS: ACETAMINOPHEN 325 MG TAB PO PRN (09:06)
[2022-08-03 09:12] VITALS: BP 143/57
[2022-08-03 09:15] VITALS: BP 143/57
[2022-08-03 12:00] VITALS: BP 151/45
== END 2022-08-03 15:42 | disposition home or self-care (01) | DRG 835 ==
LOC: ER 03:40 → ERHOLD 06:04 → MED/SURG2 08:57
PROVIDERS: ADMIT Internal Medicine; ATTEND Internal Medicine
PROC: 30233R1 Transfusion of Nonautologous Platelets into Peripheral Vein, Percutaneous Approach (ICD-10-PCS; principal; 2022-08-01)
DX: C95.00 Acute leukemia of unspecified cell type not having achieved remission (principal); D61.82 Myelophthisis; N39.0 Urinary tract infection, site not specified; E77.8 Other disorders of glycoprotein metabolism; E88.09 Other disorders of plasma-protein metabolism, not elsewhere classified; R62.7 Adult failure to thrive; G89.29 Other chronic pain; R63.4 Abnormal weight loss; M54.9 Dorsalgia, unspecified; R53.81 Other malaise; M79.606 Pain in leg, unspecified; M19.90 Unspecified osteoarthritis, unspecified site; M51.34 Other intervertebral disc degeneration, thoracic region; M51.37 Other intervertebral disc degeneration, lumbosacral region; I10 Essential (primary) hypertension; Z68.25 Body mass index [BMI] 25.0-25.9, adult; Z90.49 Acquired absence of other specified parts of digestive tract; Z90.710 Acquired absence of both cervix and uterus; Z88.0 Allergy status to penicillin; Z79.891 Long term (current) use of opiate analgesic; Z79.2 Long term (current) use of antibiotics; Z79.899 Other long term (current) drug therapy; Z87.19 Personal history of other diseases of the digestive system
CPT/HCPCS: 36415; 74177; 80048; 80053; 81001; 82270; 82550; 82553; 82607; 82746; 83540; 83690; 83735; 83970; 84100; 84443; 84466; 84484; 85025; 85045; 86900; 93005; 99284; J2405; J7030; J7050; P9034; Q9967